=== PATIENT | female | born 1985 | race Caucasian/White ===

== ENCOUNTER 2023-01-01 06:07 | Day surgery (SDC) | payer OTHER, SELFPAY ==
[2023-01-01] VITALS (10 sets, daily range): BP systolic 93–134; BP diastolic 51–81; PULSE 64–96; RESP 14–18; TEMP 36.4–36.8; O2SAT 98–100; BMI 29.7
[2023-01-01] MEDS: SODIUM CHLORIDE 0.9 % (FLUSH) 10 ML SYRINGE IVF (06:35)
[2023-01-01] MEDS: LACTATED RINGERS 1000 ML 1,000 ML 100 ML IV ×2 (06:35→08:33)
[2023-01-01] MEDS: CEFAZOLIN 2 GM INJ IVP (07:50)
--- NOTE | 2023-01-01 07:51 | W.ANESCHARGE ---
Anesthesia Charges Start Date/Time Anesthesia Start Date: 01/01/23 Anesthesia Start Time: 07:40 Stop Date/Time Anesthesia Stop Date: 01/01/23 Anesthesia Stop Time: 09:17
[2023-01-01] MEDS: BUPIVACAINE 0.5% 30 ML INJECTION (09:02)
--- NOTE | 2023-01-01 09:06 | P.GSOP_ITS ---
Operative Note Date of procedure: 01/01/23 Pre-op diagnosis: Biliary colic Post-op diagnosis: Same Type of Procedure: Laparoscopic cholecystectomy Indications: Patient is a 37-year-old female who presented to clinic with clinical history and workup consistent with biliary colic. Risks and benefits of operative intervention were discussed at length with the patient. Risks included but was not limited to: Bleeding, infection, risk of damage to surrounding structures, possible need for additional procedures, possible need to convert to an open operation and postoperative complications such as pneumonia, pulmonary emboli or RI. All questions and concerns were addressed with the patient agreeing to proceed. Procedure Description: After discussing the risks and benefits of the procedure, the patient signed informed consent.? The operative site was marked and the patient was brought to the operating room and placed on the operating table in supine position.? Care was taken to pad the patient's pressure points.?? The patient was then intubated by anesthesia.?? The operative site was then prepped and draped in the usual sterile fashion.? A time-out was then performed. Entrance to the abdomen was gained via a 5 mm Visiport in the left upper quadrant. The abdomen was insufflated and briefly surveyed for signs of injury. There was none. 11 mm umbilical port was placed as well as 2 working ports along the right costal margin. Patient was then placed in reverse Trendelenburg position with the right side up. The gallbladder fundus was grasped and retracted cephalad. A small amount of dissection was needed to free omental adhesions from the gallbladder. The infundibulum was grasped. A combination of hook cautery and blunt dissection was used to carefully dissect out the cystic duct and artery until they could clearly be seen entering the gallbladder without any intervening structures. The gallbladder was dissected off the cystic plate to achieve the critical view. Once this was achieved the cystic duct and artery were each clipped with 2 clips proximally and 1 clip distally and transected with the scissors. A small amount of bleeding was seen at the cystic artery, consistent with a branch of the artery. This was controlled with 2 additional 5 mm clips. The gallbladder was then taken off of the liver bed. A large vein was seen during this dissection an additional 5 mm clips placed to prevent bleeding. The gallbladder was removed from the abdomen using an Endo- Catch bag. The gallbladder bed was surveyed for hemostasis. The umbilical port fascia was closed with 0 Vicryl. All other ports were removed under direct visualization The skin was closed with absorbable subcuticular suture. Instrument sponge and needle counts were correct at the end of the case. The patient was then woken and transferred to the PACU in stable condition. ? Findings: Cholelithiasis Anesthesia: GETA Surgeon: Shira Lainez MD Estimated blood loss (mL): 5 Specimen: Gallbladder Condition: stable Disposition: same day
--- NOTE | 2023-01-01 09:16 | W.ANESCHARGE ---
Anesthesia Charges Start Date/Time Anesthesia Start Date: 01/01/23 Anesthesia Start Time: 07:40 Stop Date/Time Anesthesia Stop Date: 01/01/23 Anesthesia Stop Time: 09:17
== END 2023-01-01 10:35 | disposition home or self-care (01) ==
PROVIDERS: PCP Family Medicine; Visit Provider Surgery
PROC: 0FT44ZZ Resection of Gallbladder, Percutaneous Endoscopic Approach (ICD-10-PCS; CPT 47562; principal; 2023-01-01 07:30)
DX: K80.10 Calculus of gallbladder with chronic cholecystitis without obstruction (principal)
CPT/HCPCS: 47562; 00790; 88304; J0330; J0690; J1100; J1170; J1885; J2250; J2405; J2704; J2710; J3010; J3490; J7120